=== PATIENT | female | born 1940 | race Caucasian/White ===

== ENCOUNTER 2016-08-31 12:18 | Inpatient (IN) | payer MEDICARE ==
[~2016-08-31] VITALS: Ht 165.1 cm; Wt 82.0 kg
[2016-08-31 12:23] VITALS: BP 164/102; PULSE 79; RESP 22; O2SAT 99
--- NOTE | 2016-08-31 12:24 | ED.REPORT ---
HPI-Chest Pain 40 and Over Date of Service Aug 31, 2016 ED Provider: Jesus Desouza DO The patient is a 76 year old female with history of hypertension and bleeding ulcers, who was brought to the emergency department by EMS for substernal chest pain that began a few days ago. Her pain has waxed and waned since onset. She describes the pain as a "pressure" and states it feels like indigestion. The pain radiates through to her back. Her symptoms improved this morning for a few hours after she was in a supine position but later returned. Medics administered aspirin, Plavix, heparin bolus, started a heparin drip, and nitroglycerin x1. Her pain has improved with these medications. She denies hematochezia, bloody/tarry stools or hematuria. She denies history of known coronary artery disease or blood clots. Nursing Notes Stated Complaint: CHEST PAIN Chief Complaint: Chest Pain Nursing Notes Reviewed: Yes Allergies: Coded Allergies: No Known Allergies (Unverified , 08/31/16) General Time Seen by MD: 12:20 Chief Complaint Chest pressure Hx Obtained From: Patient, EMS Arrived By: Ambulance Sudden in Onset?: Yes Onset Occurred: 4 days ago Symptom Duration: Waxes and wanes Location: : Substernal Quality: Painful, Pressure Radiation: : Does not radiate Severity: Current: Pain level 4 out of 10 Severity: Maximum: Severe Recent Healthcare: No recent doctor visit, No recent hospitalization Similar Sx Previous: No Past Medical History Past Medical History Hypertension Bleeding ulcers Past Surgical History Sinus surgery Family History Noncontributory Smoking History Former Smoker Social History Alcohol Use: "Social" Drug Use: Denies drug use Ambulatory Status Independent Review of Systems Review of Systems Note: +indigestion Cardiovascular: Reports: Chest pain Musculoskeletal: Reports: Back pain Complete sys rev & neg: except as marked. Physical Exam Initial Vital Signs Vital Signs (First) Date Time Temp Pulse Resp B/P Pulse Ox O2 Delivery O2 Flow Rate FiO2 08/31/16 12:23 36.4 79 22 164/102 99 08/31/16 12:44 Nasal Cannula 3 Initial VS: Reviewed Head / Eyes: Atraumatic, Normocephalic, PERRL ENT: Mucous membranes moist, Conjunctiva normal, No scleral icterus Neck: Supple, Non-tender, Full range of motion Lymphatic: No lymphadenopathy Extremities: Vascular intact, Neuro intact, No swelling, No tenderness Skin: Warm, Dry, No cyanosis Neurologic: Alert, Oriented, Nonfocal Psychiatric: Mood/affect normal, Behavior normal, Normal thought content General/Constitutional: Awake, Alert, Cooperative Distress / Hydration: Positive: Distress mild Respiratory / Chest: Atraumatic, Breath sounds NL, Breath sounds = bilat, No respiratory distress, No rales, No rhonchi, No wheezing, No stridor, No chest tenderness Cardiovascular: Heart rate NL, Regular rhythm, Heart sounds NL, No gallop, No murmurs, No rubs, Peripheral circulation NL, Pulses = bilaterally, No gross BP differential Abdomen: Atraumatic, Soft, Non-tender, McBurney's non-tender, No guarding, No rebound, BS normoactive, No distention, No hernia, No palpable mass Interpretation & Diagnostics Lab Results Interpretation Result Diagram: 08/31/16 1255 08/31/16 1255 Test 08/31/16 12:41 08/31/16 12:55 Hold Urine Received (Received) White Blood Count 8.7th/mm3 (3.8-10.1) Red Blood Count 4.22mil/mm3 (3.90-5.20) Hemoglobin 13.5g/dL (12.0-15.6) Hematocrit 40.1% (35.0-46.0) Mean Corpuscular Volume 95.0fL (81-100) Mean Corpuscular Hemoglobin 32.0pg (27.0-35.0) Mean Corpuscular Hemoglobin Concent 33.7% (32.0-37.0) Red Cell Distribution Width 13.4% (12.3-15.4) Platelet Count 290bil/L (150-400) Neutrophils (%) (Auto) 72.9% (40-74) Lymphocytes (%) (Auto) 17.4% (14-46) Monocytes (%) (Auto) 8.0% (4-12) Eosinophils (%) (Auto) 1.0% (0-5) Basophils (%) (Auto) 0.6% (0-3) Prothrombin Time 10.7sec (8.1-12.5) Prothromb Time International Ratio 1.00ratio Activated Partial Thromboplast Time 66.2sec (22.8-33.0) Sodium Level 138mEq/L (134-144) Potassium Level 3.8mEq/L (3.5-5.2) Chloride Level 101mEq/L (97-108) Carbon Dioxide Level 21mmol/L (18-29) Blood Urea Nitrogen 11mg/dL (8-27) Creatinine 0.54mg/dL (0.57-1.00) Estimat Glomerular Filtration Rate 157mL/min (>59) Glucose Level 109mg/dL (60-99) Calcium Level 9.5mg/dL (8.5-10.1) Magnesium Level 1.7mg/dL (1.6-2.6) Total Bilirubin 0.4mg/dL (0.0-1.2) Aspartate Amino Transf (AST/SGOT) 28U/L (0-50) Alanine Aminotransferase (ALT/SGPT) 10U/L (0-32) Alkaline Phosphatase 107U/L (25-165) Total Creatine Kinase 128U/L (21-215) Creatine Kinase MB 21.3ng/mL (0.0-5.3) Creatine Kinase MB % 16.6% (0.0-5.0) Troponin T 0.223ug/L (0.0-0.011) Total Protein 7.3g/dL (6.4-8.4) Albumin 4.0g/dL (3.4-5.0) Hold Blancas Top Tube Received (Received) ECG Interpretation ECG Interpretation: Reviewed multiple pre-hospital EKGS that showed a sinus rhythm with ST elevation in V2, V3, I, and aVL with ST depressions in II, III, and aVF. Interpreted by: ED physician ECG Interpretation: Sinus rhythm with Wellens type I waves in V2 and V3, T wave inversions in V4-aVL, ST depressions in II, III, and aVF. Time: 12:18 Interpreted by: ED physician X-Ray Chest Interpretation Chest Xray Interpretation: IMPRESSION: No acute cardiopulmonary disease process. Dictated by: Ronda Henry MD, PhD on 08/31/2016 at 12:52 Interpretation / Wet Read by: Interpret - Radiologist Re-Eval/Medical Decision Med Decision/Clinical Course Patient arrives from outside facility. Immediately upon arrival and evaluating prehospital EKGs, STEMI activation is made. Patient received morphine and nitroglycerin and metoprolol in the ER. Prior to arrival received aspirin, 300 mg Plavix, heparin bolus and drip. Patient will be taken emergently to the [facility]. Source of Hx: Old records, EMS Time of Eval: 12:26 Re-Evaluation/Progress Note: STEMI called. Time of Eval: 12:34 Re-Evaluation/Progress Note: Discussed plan for cardiology consult with the patient. She understands and agrees with the plan. Time of Eval: 12:50 Re-Evaluation/Progress Note: The patient is feeling better. Time of Eval: 12:55 Re-Evaluation/Progress Note: Dr. Griffith is at bedside. Time of Eval: 13:00 Re-Evaluation/Progress Note: The patient was transferred to the labor employment associate. Consultation #1: Referral / Consult Name: Haris Griffith MD Consulted With: Cardiology Call Returned at: 12:20 Health Manager: Will see patient Consultation #2: Referral / Consult Name: Haris Griffith MD Call Returned at: 12:53 Health Manager: Will see patient, Agrees with eval, Agrees with plan, Requested labor employment associate Counseled Regarding: Diagnosis, Lab results, Need for admission Discharge & Departure Primary Impression: STEMI (ST elevation myocardial infarction) Involved coronary artery: unspecified coronary artery Qualified Code: I21.3 - ST elevation (STEMI) myocardial infarction of unspecified site Disposition: ADMITTED TO HOSPITAL Discharge Condition All VS Reviewed: Yes Condition: Stable Referrals: Debbie Patel MD (Family) Crit Care Except Billable Proc Time Spent: 30-74 minutes Services Performed: Patient management by me, Time spent at bedside, Reviewing test results, Reviewing imaging, Discussing patient care, Documentation in record, Time with fam/surrogate Critical Care Notes: See MDM Scribe Attestation Portions of this note were transcribed by Amarilys Darden. I, Dr. Desouza personally performed the history, physical exam and medical decision-making; I reviewed and confirmed the accuracy of the information in the transcribed note. Signed by: Joann Juarez, 08/30/2016 at 0432. copies to: Debbie Patel MDJesus Diggs Aug 31, 2016 12:24 Amarilys Darden Aug 31, 2016 12:31
[2016-08-31] MEDS ORDERED: Ondansetron 2 mg/mL 2 mL Inj ONE (12:35)
[2016-08-31 12:44] VITALS: BP 160/97; PULSE 92; RESP 16; O2SAT 93
[2016-08-31] MEDS ORDERED: Heparin 1,000 Unit/mL 10 mL Inj ONE ×2 (12:46→14:57)
[2016-08-31] MEDS ORDERED: Nitroglycerin 50,000 mcg/250 mL D5W Premix IV ONE (12:46)
[2016-08-31] MEDS ORDERED: Heparin 1,000 Units/500 mL NS Premix IV ONE ×2 (12:46→14:53)
[2016-08-31] MEDS ORDERED: Heparin 5,000 Units/500 mL NS Premix IV ONE (12:46)
--- NOTE | 2016-08-31 12:54 | DRSVH ---
PROCEDURE: X-RAY CHEST ONE VIEW, PORTABLE ([id number]) INDICATIONS: chest pain TECHNIQUE: One view of the chest was acquired. COMPARISON: [facility], , CHEST 2 VIEW, 01/08/2012, 10:52. FINDINGS: Surgical changes and devices: None. Lungs and pleura: No pleural effusions or pneumothorax. Lungs are clear. Mediastinum: Mediastinal contours appear normal. Heart size is normal. Retrocardiac hiatal hernias again noted. Bones and chest wall: No suspicious bony lesions. Overlying soft tissues appear unremarkable. IMPRESSION: No acute cardiopulmonary disease process. Dictated by: Ronda Henry MD, PhD on 08/31/2016 at 12:52 Approved by: Ronda Henry MD, PhD on 08/31/2016 at 12:52
[2016-08-31 12:55] VITALS: BP 155/91; PULSE 77; RESP 18; O2SAT 93
[2016-08-31 13:03] LABS: BASOPHILS % (AUTO) 0.6 % (0-3); NEUTROPHILS % (AUTO) 72.9 % (40-74); Platelet Count 290 bil/L (150-400)
[2016-08-31] MEDS ORDERED: fentaNYL-PF 50 mCg/mL 2 mL Inj ONE (13:08)
[2016-08-31 13:43] LABS: Magnesium 1.7 mg/dL (1.6-2.6)
[2016-08-31 14:10] LABS: TROPONIN T 0.223 ug/L (0.0-0.011)
[2016-08-31] MEDS ORDERED: Atropine 1 mg/10 mL (Code) Syringe IVPUSH PRN (16:15)
[2016-08-31] MEDS ORDERED: Sodium Chloride LOK Flush 10 mL Syringe IVFLUSH PRN (16:15)
[2016-08-31] MEDS ORDERED: Ondansetron 2 mg/mL 2 mL Inj IVPUSH PRN (16:15)
[2016-08-31] MEDS ORDERED: 0.9% Sodium Chloride 250 ML BOLUS IV PRN (16:15)
--- NOTE | 2016-08-31 17:37 | PCM.HPMED ---
Subjective Date of Service Aug 31, 2016 Primary Provider: Admitting Physician: Haris Griffith MD Primary Care Physician: Other,Physician Attending Physician: Haris Griffith MD Chief Complaint: Chest pain HISTORY was OBTAINED FROM PATIENT / MEDITECH NOTES History of present illness 76-year-old female with 4 days of substernal chest pain intermittent pressure-like radiated to her back associated malaise progressively worse each day so called EMS today. EMS gave her aspirin Plavix heparin bolus/drip nitroglycerin and improved pain with this. No bloody stools. No prior MIs. In the ER morphine, nitroglycerin, 164/102, 3 L nasal cannula, troponin 0.223, ST elevation inferior leads, inverted T lateral leads. In the [facility], LAD was stented 3. Dr. Griffith. Review of Systems - none of the following - F/C/sick contact / wt change/ TONG / lightheaded / dizziness / sob / cough / cp / acid reflux / bleeding/bruising / leg swelling / change in voiding / yeast infections / rash ambulates ongoing sinus congestion diarrhea yesterday / nausea yesterday FAMILY HX no MIs SOCIAL HX social EtOH, former smoker MEDICATIONS serzone nexium verapamil zestril potassium, self dcd HCTZ due to frequent voiding Past Medical/Surgical HX PUD/hemorrhaging, but normal endoscopy 10/05/2004 Hypertension\ Sinus operation 2016 recurrent sinusitis depression Allergies Coded Allergies: No Known Allergies (Unverified , 08/31/16) PMH Social History Hx Alcohol Use: Yes (wine occasionally) Smoking Status: Former Smoker Exam Vital Signs Vital Sign - Last Date Time Temp Pulse Resp B/P Pulse Ox O2 Delivery O2 Flow Rate FiO2 08/31/16 12:55 77 18 155/91 93 Nasal Cannula 3 08/31/16 12:23 36.4 Lab and Diagnostics Labs Exam on admission 2L O2, drops to 88% if off O2 NAD A and O x 3 mood affect WNL NC/AT no icterus no injected eyes EOMI PERRL /no pharyngeal lesions/ no oral lesions / hearing intact Supple neck CTAB equal chest rise / no accessory muscle use / speaks in full sentences / no rrw RRR S1 S2 / no mrg / 2+ radial pulses Soft nt nd + BS no hepatosplenomegaly No edema no cyanosis no ecchymosis of lower extremities No rash / no jaundice LAMAR EKG SR 57, inverted T waves in precordial/lateral leads Trop0.223 at 1 PM INR 1 LFT normal Imaging PROCEDURE: X-RAY CHEST ONE VIEW, PORTABLE ([id number]) INDICATIONS: chest pain TECHNIQUE: One view of the chest was acquired. COMPARISON: [facility], CHEST 2 VIEW, 01/08/2012, 10:52. FINDINGS: Surgical changes and devices: None. Lungs and pleura: No pleural effusions or pneumothorax. Lungs are clear. Mediastinum: Mediastinal contours appear normal. Heart size is normal. Retrocardiac hiatal hernias again noted. Bones and chest wall: No suspicious bony lesions. Overlying soft tissues appear unremarkable. IMPRESSION: No acute cardiopulmonary disease process. Result Diagram: 08/31/16 1255 08/31/16 1255 Assessment & Plan Active issues and reason for admission Chest pain, LAD occlusion/3 stent placement, treated as ST elevation RI -- Pending lipid panel, A1c, echo -- Lipitor, nitroglycerin, aspirin, Plavix, oxygen, morphine --strict Urine output, unknown CHF involvement --anticipate dc home verapamil, start betablocker per chemical preparer, anticipate resuming home ACEI after contrast from cardiac cath passes. Sinusitis --trial amoxicillin, claritin, ocean spray Chronic issues known prior to admission, present on admission Hypertension depression PUD, but 2005 negative EGD -- Protonix, serzone Diet cardiac DVT prophylaxis scd, consider heparin/Lovenox if not ambulating by tomorrow Code full Disposition inpatient Assessment and plan were discussed with patient Ryan Tomas MD Aug 31, 2016 17:37
--- NOTE | 2016-08-31 18:08 | NUR ---
Admit Pt arrived from clinical laboratory technician at 1600 after having 3 stents placed to the LAD. Right groin site c/d/i and soft to the touch. Alert and oriented x3. Laying flat and gave verbal understanding of remaining that way until 1900. Heart healthy diet ordered. Gave statin once sent from pharmacy. The plavix that was ordered to give non administered r/t being given in clinical laboratory technician. 2L O2 NC at 96% No other c/o than mild soreness at right groin site. EKG completed. consulted with pt. MRSA swab sent. X2 peripheral fragile IV with NS at 100ml/hr. 400cc urine output into bedpan. Pedal pulses strong. Significant other at bedside. Updated daughter (POA) on the phone that expressed concerns that if pt were to be unable to make decisions for herself that daughter needs to be called and patients significant other is not to make decisions for her.
--- NOTE | 2016-08-31 18:46 | CS94 ---
[address] [address] DIAGNOSTIC CARDIAC CATHETERIZATION PATIENT: NATALIE GONZALEZ : 1939 MR#: [id number] ADMIT: 08/31/2016 JOB ID: [id number] PROCEDURE NOTE--CARDIAC CATHETERIZATION LABORATORY: DATE OF PROCEDURE: Wednesday, August 31, 2016. STEAMER OPERATOR: Haris Griffith MD PROCEDURES: 1. Coronary Angiogram--Emergent: 2. Left Heart Catheterization (LHC)--LVED; and Pullback. 3. Percutaneous Coronary Intervention (PCI): a. GUADALUPE of Mid LAD: Resolute 2.25 x 30 mm; and Resolute 2.25 x 12 mm overlapping proximally. b. GUADALUPE of Proximal LAD--Xience 2.75 x 18 mm. CLINICAL DETAILS: This 76-year-old woman presented to the Emergency Department by EMS because of severe indigestion-like chest pain that had been intermittent for several days. In the Emergency Department she had no chest pain. ECG in the ambulance showed anterior ST elevation, including confirmatory inferior reciprocal ST depression, but this had resolved in the emergency department; and then showing Wellen's-like anterior T-wave inverson. She was otherwise stable. She has no prior history of heart disease. PROCEDURAL DETAILS: In the ambulance she received aspirin 324 mg chewed. In the Emergency Department she received Heparin 4000 units IV bolus; and Heparin IV infusion. In the ambulance she received 300 mg Plavix p.o; and 300 additional mg Plavix p.o. in the ED. I evaluated her in the Emergency Department and discussed with her and her Significant Other--including the clinical findings, impressions, and management considerations with the recommendation to proceed emergently to coronary angiogram, and anticipated percutaneous coronary intervention for acute coronary syndrome with resolved ST-elevation. We discussed the procedure, including possible risks and complications in the emergent setting. We discussed briefly including bleeding, and multiple other possible complications including serious complications, and related to her severe underlying illness, or despite medical care. After questions and discussion she signed informed consent to proceed. She was brought to the Catheterization Laboratory, where she was prepped sterilely and draped. CORONARY ANGIOGRAM: Arterial access was obtained without difficulty in the right common femoral artery using fluoroscopic localization over a prosthetic femoral head with modified Seldinger technique to insert a 10-cm 6-Norwegian side-arm sheath. Catheters were advanced and exchanged over a long 0.035 J-tipped Guidewire. First the right coronary artery was was imaged using a 6-Norwegian JR-4 diagnostic catheter. The catheter entered the left ventricle incidentally and left heart catheterization was performed including LVED and pullback. Then the left coronary artery was imaged using a 6-Norwegian JL-4 Guide catheter. PERCUTANEOUS CORONARY INTERVENTION--MID AND PROXIMAL LAD: The diagnostic angiogram was reviewed; and the decision was made to proceed emergently with Intervention of the culprit LAD lesion-- which includes a long subtotal Mid LAD lesion and a proximal tubular lesion. The proximal lesion is at the site of a small diagonal which has only FARRUKH-1 flow initially. For the intervention the left main coronary artery was short and the guide was changed to 6-Norwegian Voda 3.0 Guide. Procedural anticoagulation was obtained with Heparin IV boluses to achieve therapeutic ACT. Aliquots of NTG IC were used as needed during the procedure. PREDILATATION: Initially a BMW Wire--0.014 inches x 190 cm--was placed across both lesions into the Distal LAD without difficulty. The proximal lesion was predilated with a Trek Balloon--2.5 x 15 mm--inflated across the proximal lesion to maximum six atmospheres. The lesion was improved. Then a Resolute GUADALUPE Stent--2.25 x 30 mm--was advanced but would not cross the proximal edge of the Mid LAD lesion. Multiple maneuvers were required to allow the stent to pass easily, including a nazario wire BHW. The distal lesion was predilated with a Trek Balloon--2.5 x 15 mm--inflated to maximum six atmospheres. Finally, the proximal part of the lesion was predilated further with a noncompliant Trek NC Balloon-- 2.25 x 15 mm--inflated to maximum 12 atmospheres. The lesion appeared improved. STENT: After predilatation the Resolute GUADALUPE 2.25 x 30 mm was placed without difficulty across the lesion; and deployed at 14 atmospheres. Then the residual proximal portion of the lesion was treated with 2nd stent overlapping the 1st stent proximally--Resolute GUADALUPE 2.25 x12 mm--deployed at 16 atmospheres. Finally the proximal lesion was treated with a Xience GUADALUPE--2.75 x18 mm--deployed at 14 atmospheres across the proximal LAD lesion. Postdilatation: the distal stents were post dilated with a noncompliant Trek NC Balloon--2.25 x 15 mm--inflated to maximum 20 atmospheres within the two overlapping Mid LAD stents. Completion angiogram showed an excellent final result with FARRUKH-3 flow; no residual lesion; and no evident angiographic complication.Regarding door to balloon time, note estimated door to balloon time was 78 minutes; and the artery was initially open with spontaneous reperfusion; and initially FARRUKH-3 flow. Procedure without difficulty. Patient tolerated procedure well. No complications. A side-arm sheath angiogram showed adequate access in the right common femoral artery for a closure device. Arterial hemostasis was obtained without difficulty using Perclose. The patient was transferred from the Catheterization Laboratory chest-pain free; in stable and improved condition to the CCU for ongoing care including by the admitting Hospitalist Service. I discussed the procedure, findings, and management considerations with the patient, her Significant Other, and with the Hospitalist Team. FINDINGS: 1. LMCA: The left main coronary artery is very short, with near dual ostia, but no obstructive lesions. 2. LAD: The left anterior descending coronary artery is a large transapical vessel; and it is the infarct-related artery. There is a proximal tubular 90% lesion at the site of a takeoff of a small first diagonal. The diagonal only has FARRUKH-1 flow; and remained unchanged. There is a second long diffuse 99% Mid LAD lesion which was the distal treatment site. There are no large diagonals. 3. LCX: The left circumflex coronary artery is a large vessel; its distribution includes a moderate to large first obtuse marginal and a moderate to large distal left posterolateral branch. There are no angiographic lesions. 4. RCA: Dominant. The right coronary artery is a large vessel with a moderate to large PDA; and a moderate right posterolateral branch. No angiographic lesions. There are faint septal collaterals to the LAD but they do not perfuse the LAD significantly. 5. LHC: LVED=15 mmHg. No systolic gradient on pullback across the aortic valve. CONCLUSIONS: 1. PCI: GUADALUPE (Drug-Eluting Stent) of Proximal LAD; and Mid LAD culprit lesions. 2. ACS (acute anterior myocardial infarction): Note spontaneous reperfusion on reaching the Emergency Department, with no chest pain; resolution of ST elevation; and initially FARRUKH-3 flow in the infarct-related LAD. 3. CAD (Coronary Artery Disease): Single-Vessel CAD involving the Proximal and Mid LAD. RECOMMENDATIONS: 1. ECASA: Indefinitely. 2. Plavix: Plan one year if well tolerated including ongoing cardiology follow-up. I discussed with the patient, and Significant Other not to stop Plavix for any reason without immediate Cardiology consultation. 3. Echocardiogram. 4. OMT: Guideline directed optimal medical therapy including aspirin, Plavix, beta-gilberto in a.m., TAYLOR inhibitor later, and statin now. 5. Careful postprocedure hydration and careful monitoring of renal function. MTDD
[2016-08-31] MEDS ORDERED: Sodium Chloride NAS 45 mL Spray NASAL ONE (18:55)
[2016-08-31] MEDS ORDERED: Sodium Chloride NAS 45 mL Spray NASAL PRN (18:55)
--- NOTE | 2016-08-31 19:19 | CONS ---
[address] [address] CONSULTATION REPORT PATIENT: NATALIE GONZALEZ : 1939 MR#: [id number] ADMIT: 08/31/2016 JOB ID: [id number] CARDIOLOGY CONSULTATION NOTE--INITIAL CRITICAL CARE EVALUATION(EMERGENCY DEPARTMENT): DATE OF CONSULTATION: Wednesday, August 31, 2016 at 1:50PM. CONSULTING PHYSICIAN: Cardiology-Haris Griffith MD PROBLEMS: 1. Acute Coronary Syndrome (ACS): a. Chest Pain--Intermittent (Severe indigestion for at least 48 hours). b. STEMI (ST-elevation myocardial infarction)--Acute anterior myocardial infarction on ECG, but ST elevation resolved on admission to emergency department. CORONARY ARTERY DISEASE RISK FACTORS: 1. No history of diabetes. 2. History of treated hypertension for some years. 3. Former smoker--stopped 40 years ago. 4. Family history of premature coronary disease-- Noncontributory. 5. Hyperlipidemia--No history of treated hyperlipidemia. CHIEF COMPLAINT: 1. Chest pain. 2. ECG with anterior ST elevation. HISTORY OF PRESENT ILLNESS: EMERGENCY DEPARTMENT COURSE: The emergency department called to activate the catheterization lab for a "STEMI" when this 76-year-old woman from [facility] presented by EMS. I came to meet her emergently in the emergency department. She tells me that she has had severe 8/10 in intensity retrosternal "indigestion" with some radiation to the back that has been bothering her intermittently for two days "or maybe more." The longest episodes have lasted at least an hour. Today the pain was worse and she called EMS. In the ambulance she received aspirin 325 mg chewed. Interestingly, on admission to the emergency department she was pain free; and ECG had largely normalized without the anterior ST-elevation, or reciprocal inferior ST-depression that were noted on the pre-hospital ECG. She was otherwise clinically stable, and in fact hypertensive with blood pressure 160/93 initially. CARDIAC HISTORY: She tells me she has no prior known heart disease. She describes herself as being not much active; but she accomplishes her activities of daily living without limitation or effort-related cardiac symptoms, including recently. She has a flight of stairs in her house that she walks without difficulty. She goes shopping, although she does not drive anymore; and she can carry laundry and groceries without shortness of breath or chest discomfort. She has no symptoms of underlying heart failure such as nocturnal dyspnea or edema. She has no history of arrhythmia or current symptoms of arrhythmia such as tachy palpitations, presyncope, or syncope. Regarding other possible underlying vascular disease, there is no history of CVA or current symptoms of TIA. No claudication. Regarding possible dual antiplatelet therapy she indicates she is reliable to take mandatory medicines, she has no anticipated upcoming surgery, and she has no current bleeding symptoms. ALLERGIES: No known drug allergies noted. I elicit no history of allergy to contrast media or to fish, seafood, or iodine. MEDICATIONS: She is not entirely sure of all her medicines but they include: 1. Verapamil. 2. Lisinopril. Not an aspirin; and not on a statin. PAST MEDICAL HISTORY: 1. GI bleed: Remote history many decades ago requiring 4 units of transfusion. Nothing recent. 2. Right hip replacement several years ago. 3. Sinus ENT surgery about six months ago. REVIEW OF SYSTEMS: I questioned her in the emergent setting regarding a 13-point review of systems, which is unremarkable noncontributory, or negative except as noted includin. Some history of thyroid disease but she is not able to give details. 2. No history of lung disease, asthma, or wheezing. 3. No history of other GI disease such as hepatitis, jaundice, or ulcers. PERSONAL AND SOCIAL HISTORY: Cigarettes: She stopped smoking 40 years ago. She smoked a pack a day for maybe 20 years. She has no history of COPD. Alcohol: She reports she does not use much alcohol. Family: Her . She has a significant other who is present and has taken care of her "for over 10 years." Her daughter is a critical care and cardiac nurse in [place], [place]. Work: She and her lived in [place] for many years working for [employer]; now retired. FAMILY HISTORY: Family history noncontributory regarding premature coronary disease. PHYSICAL EXAMINATION: General appearance: Well-developed, pleasant, elderly woman who is alert and appears comfortable in the emergency department. Vital signs: Initial blood pressure 160/109 and then 130/80. Heart rate 66, regular, in sinus rhythm on telemetry without arrhythmia. Respiratory rate 20 and nonlabored. SpO2 96% on nasal cannula. Weight is 77 kg. Neurologic and Mental status: No overt focal neurologic defect noted. She is alert, oriented, appropriate, and conversant. HEENT: PERRL. Conjunctivae pink. Sclerae not icteric. Mouth: Mucous membranes intact, with Mallampati four. Neck: Carotid upstroke faint, but intact, and no bruit audible bilaterally. Jugular venous pressure unremarkable examined supine. No palpable thyromegaly. No palpable cervical lymphadenopathy. Lungs: Clear to auscultation bilaterally. CARDIAC: No chest wall tenderness. Cardiac examination otherwise unremarkable, with regular rhythm, S4; and not any loud murmur. Abdomen: Somewhat obese, but otherwise unremarkable, without tenderness, mass, hepatosplenomegaly, or bruit of abdominal aortic aneurysm. Extremities: No edema. The pedal pulses are faint bilaterally. The dorsalis pedis pulse is intact on the right. DIAGNOSTIC STUDIES: Electrocardiogram: Initial pre-hospital ECG shows sinus rhythm with clear anterior ST elevation including ST-elevation in lateral leads L1 and aVL, and also confirmatory reciprocal inferior ST depression. The ECG on presentation to the emergency department shows deep Wellens type T-wave inversion anteriorly; but ST elevation and reciprocal ST depression have cleared consistent with the resolution of chest pain on presentation. 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 Chest x-ray: The chest x-ray shows cardiomegaly and borderline pulmonary venous hypertension suggestive of possible heart failure. Note probable hiatal hernia. LABORATORY TESTS: Initial laboratory results became available during the catheterization lab procedure including: CBC shows WBC 8700, hemoglobin 13.5, hematocrit 40.1, and platelet count 290,000. Chemistries include potassium 3.8, creatinine 0.54, BUN 11, with magnesium 1.7. LFT unremarkable. Initial cardiac markers include total CK not yet elevated at 128 with CK-MB elevated 21.3 and elevated troponin 0.223. ASSESSMENT: I discussed my findings, impressions, and management considerations with the patient and her Significant Other in the Emergency Department; and with the Emergency Department staff; Cardiology; and the admitting Hospitalist Service includin. Acute coronary syndrome (ACS): Acute anterior myocardial infarction with spontaneous pre-hospital reperfusion. She presents with acute anterior myocardial infarction; but the scenario also includes several atypical features in that she has had intermittent pain for several days. The ST-elevation captured on the pre-hospital ECG resolved along with her chest discomfort, which is consistent with the finding of an open culprit artery at that time of catheterization. She is otherwise clinically stable, except note hypertension. We discussed the recommendation to proceed emergently to catheterization and anticipated primary PCI for likely coronary disease and an LAD culprit lesion. RECOMMENDATIONS: 1. Cardiac Catheterization--Emergent. 2. Echocardiogram. 3. OMT--Guideline directed optimal medical therapy including aspirin; Plavix; heparin; statin; metoprolol later; and TAYLOR inhibitor later. 4. Evaluation and guideline-directed management of coronary risk factors. GERMAN
[2016-08-31] MEDS: Fluticasone 0.05% 15 Spray/2 Gm 16 Gm Nasal Spray NASAL SCH (19:33)
[2016-08-31] MEDS ORDERED: MULT1CAP33 PO (19:45)
[2016-08-31] MEDS ORDERED: NEFA200T PO (19:45)
[2016-08-31] MEDS ORDERED: CALC-140 PO (19:45)
[2016-08-31] MEDS ORDERED: LISI-567 PO (19:45)
[2016-08-31] MEDS ORDERED: LEVO75TA4 PO (19:45)
[2016-08-31] MEDS ORDERED: VERA240T97 PO (19:45)
[2016-08-31] MEDS ORDERED: HYDR12.55 PO (19:45)
[2016-08-31] MEDS ORDERED: POTA20TA16 PO (19:45)
[2016-08-31] MEDS ORDERED: OMEP20CA11 PO (19:47)
[2016-08-31] MEDS ORDERED: FEXO180T85 PO (19:47)
[2016-08-31] MEDS: Pantoprazole 20 mg ER24 Tablet PO SCH (19:55)
[2016-08-31 20:00] VITALS: BP 120/59; PULSE 70; RESP 18; O2SAT 96
[2016-08-31] MEDS ORDERED: 0.9% Sodium Chloride 500 ML ONE (20:06)
[2016-08-31] MEDS ORDERED: 0.9% Sodium Chloride 0 ML ONE (22:35)
[2016-08-31 23:44] VITALS: BP 120/62; PULSE 67; RESP 18; O2SAT 95
[2016-09-01] VITALS (9 sets, daily range): BP systolic 125–136; BP diastolic 54–81; PULSE 61–86; RESP 12–18; O2SAT 90–95
[2016-09-01 02:57] LABS: BASOPHILS % (AUTO) 0.4 % (0-3); EOSINOPHILS % (AUTO) 1.9 % (0-5); MONOCYTES % (AUTO) 10.2 % (4-12); Mean Corpuscular Volume 97.9 fL (81-100); NEUTROPHILS % (AUTO) 66.9 % (40-74); Platelet Count 213 bil/L (150-400)
[2016-09-01 04:59] LABS: APPEARANCE,URINE HAZY (CLEAR,HAZY); COLOR,URINE YELLOW (YELLOW); OCCULT BLOOD,URINE NEGATIVE (NEGATIVE); PH,URINE 5.5 (5.0-8.0); UROBILINOGEN,URINE NORMAL (NORMAL)
--- NOTE | 2016-09-01 06:04 | NUR ---
Cardiac/Resp/Cath BP stable this shift, 120/60's, HR 70's-80's SR with ST depression, no reperfusion V-Tach noted this shift, denied chest pain since cath, O2 2L NC and sats 96%, desats to 88% while sleeping without O2, experienced right groin pain after getting up to [facility] at 2044, very small hematoma noted about 15 min after getting back in bed, monitored and hematoma continued to increase, manual pressure held, hematoma continued to increased in size, cardiology notified and ordered to place FemStop, FemStop was unable to hold pressure in the exact location over artery to stop the bleeding, manual pressure held for 25 minutes, hematoma marked and no increase in size noted since 2329, medicated for pain with 4mg Morphine, pain level 8/10 and decreased to 2/10 within the hour. Resting this AM and no distress noted, will continue to monitor. Addendum: 09/01/16 at 0622 by HITESH TRAVIS RN Amended: Links added.
--- NOTE | 2016-09-01 08:22 | NUR ---
Transfer to [facility] Orders to transfer patient out of ICU to PCC room 2030 received. Right groin hematoma stable and decreasing on assessment this morning. Right pedal pulses palpable. Patient c/o right groin discomfort and TONG so PO Tylenol PO given. Pain has decreased "slightly". Report given to José ROBBINS and patient transferred via w/c. Vitals stable.
[2016-09-01] MEDS ORDERED: Potassium Chloride Oral 20 mEq SR Tab(K 3 - 3.7 & Creat < 2) PO ONE (08:30)
[2016-09-01] MEDS: Pantoprazole 20 mg ER24 Tablet PO SCH ×2 (09:11→20:53)
[2016-09-01] MEDS: Fluticasone 0.05% 15 Spray/2 Gm 16 Gm Nasal Spray NASAL SCH ×2 (09:13→20:51)
--- NOTE | 2016-09-01 09:15 | NUR ---
Transfer Pt. transferred from ICU room 2010 room 2030 [facility]. Pt. has a right groin hematoma that is stable per report and has an outlined drawn around it. Right groin area is painful and tender upon palpation, Pt. states when ambulating pain level is at 7-8 out of 10. At rest Pt. states pain level is 3-4 out of 10. Pt. VS stable and on 1L NC SpO2 96%. Pt. is in bed sleeping at this time. Addendum: 09/01/16 at 1425 by HENRI LOERA RN Transfer report given by Ana Lilia ROBBINS.
--- NOTE | 2016-09-01 13:52 | PCM.PNMED ---
Subjective Date of Service Sep 01, 2016 Subjective No chest pain or dyspnea. No N,V,D. No abdomen pain. Right groin is a little sore. No cough. Exam Vital Signs Vital Sign - Last Date Time Temp Pulse Resp B/P Pulse Ox O2 Delivery O2 Flow Rate FiO2 09/01/16 12:30 36.7 70 18 129/69 94 Nasal Cannula 0.50 Intake and Output 08/31/16 08/31/16 09/01/16 Cumulative From/Thru 15:00 23:00 07:00 08/31/16 12:23 - 09/01/16 04:08 Intake Total 333 ml 640 ml 973 ml Output Total 400 ml 300 ml 700 ml Balance -67 ml 340 ml 273 ml Intake IV Total 333 ml 640 ml 973 ml Output Urine Total 400 ml 300 ml 700 ml # Bowel Movements 0 0 Exam NAD, oriented by three. Fluent speech Anicteric sclera Lungs clear CV RRR, no murmur Abdomen soft, NT No edema Small right groin hematoma. IVs and Medications Medications Reviewed: Medications were reviewed in detail Lab and Diagnostics Result Diagram: 09/01/1624909/01/16249 Assessment & Plan 1. STEMI. POA. Chest pain, LAD occlusion/3 stent placement, treated as ST elevation [place] -Continue current medical management. 2. Sinusitis --trial amoxicillin, claritin, ocean spray Chronic issues known prior to admission, present on admission 4. Hypertension. Follow clinically 5. depression 6. PUD, but 2005 negative EGD -- Protonix, serzone Pain Evaluation: Adequate Pain Control VTE Mechanical Devices: Intermittant Pneumatic CD Resuscitation Status: CPR: Attempt Resuscitation Time spent 30 minutes Phillip Fish MD Sep 01, 2016 13:52
--- NOTE | 2016-09-01 16:17 | PROG NOTE ---
[address] [address] PROGRESS NOTE PATIENT: NATALIE GONZALEZ : 1940 MR#: [id number] ADMIT: 08/31/2016 JOB ID: [id number] DATE: 09/01/2016. SUBJECTIVE: Overnight, patient had no chest pain recurrence. She had developed a hematoma around the right inguinal ligament. It was just alleviated by nursing staff, who recognized the problem and performed manual pressure. FemoStop was placed but could not hold the pressure in exact location. Manual pressure was held for 25 minutes. The patient received morphine and responded favorably to that. There was no bruit auscultated over the right common femoral artery vascular access site. Patient says she feels exhausted. She feels like she has been "run over by a cement truck." CURRENT MEDICATIONS IN THE HOSPITAL: 1. Aspirin 81 mg daily. 2. Plavix 75 mg daily. 3. Lipitor 40 mg daily. 4. Metoprolol tartrate 12.5 mg twice a day. 5. Serzone 100 mg twice a day. 6. Morphine as needed. 7. Amoxicillin 500 mg 3 times a day. PHYSICAL EXAMINATION: Very pleasant woman accompanied by her grandson, granddaughter and daughter. Resting in bed in no apparent distress. Appears somewhat sad. Eyes: No scleral icterus. Heart: Normal S1, S2. No murmurs. Lungs are clear. Abdomen is soft, positive bowel sounds. No hepatosplenomegaly. Extremities show no edema. Right common femoral artery vascular access shows mild ecchymosis and tenderness to palpation but no bruit. LABORATORIES: Were reviewed. She is anemic, hematocrit 32%. White count, platelet count normal. Differential is normal. Troponin T was most recently 0.618 in the setting of normal kidney function. A1c is pending. Total cholesterol 251, triglycerides 188, HDL 58, LDL 155. TSH was not ordered. Free T4, T4 and T3 uptake are pending. ASSESSMENT AND PLAN: In summary, this is a delightful, 76-year-old woman who comes in with anterior ST-elevation myocardial infarction she was treated with drug-eluting stent deployed to the proximal left anterior descending, mid left anterior descending. She was diagnosed with single-vessel coronary artery disease involving proximal, mid left anterior descending. She had 90% proximal tubular lesion at the takeoff of the small diagonal with [id number] flow initially and excellent angiographic result. The patient is doing fine. We discussed nutritional guidelines, avoiding deep fried foods and eating fatty fish. We discussed the rationale for dual anti-platelet therapy, and I counseled her to please continue Plavix for at least the next six months, so the very earliest she can anticipate discontinuing this medication would be February 28, 2017. She is tolerating metoprolol tartrate 12.5 mg b.i.d. At home, she takes lisinopril 20 mg daily. I think that is a little bit too much for her, so tomorrow, will restart her on low-dose lisinopril 5 mg daily and see how she does with that. She had an echocardiogram already and that is ordered and I have not had a chance to review it yet. In terms of lipid management, I recommend repeating her fasting lipids in late September 2016 and titrate Lipitor up as needed. Thank you very much for the opportunity to evaluate this patient.
--- NOTE | 2016-09-01 16:37 | NUR ---
Evaluation completed. Please go to "Notes" then click on "Assessments and Notes" (bottom left corner of screen). Then select appropriate discipline tab on top of screen.
--- NOTE | 2016-09-01 17:52 | DRSVH ---
[facility] [address] [place] [address] Echocardiogram Report Name: NATALIE GONZALEZ RStudy Date: 09/01/2016 Height: 65 in Hospital Exam Location: [facility] Weight: 18 0 lb Gender: Female BSA: 1.9 m2 : 1940 Age: 76 yrs BP: 129/69 mmHg Reason For Study: S/P STEMI Ordering Physician: DR. hCris HAINES Performed By: Wilma Baer Referring Physician: Dr. Debbie Patel Interpretation Summary Normal sinus rhythm. Normal LV size and wall thickness. There is basal anterior, mid-anterior and distal anterior akinesis. there is distal septal akinesis; there is distal lateral and mid-anterolateral and basal anterolateral hypokinesis. TOtherwise, normal wall motion. EF is 40-45%. Stage II diastolic dysfunction. Mitral valve leaflets are normal; mild regurgitation. Aortic valve leaflets are normal; no regurgitation. There is moderate central TR; estimated PA systolic pressure is 63 mm Hg assuming RA pressure of 10 mm Hg. Compared to prior study performed 11/25/2014, focal wall motion abnormalities are new. PA systolic pressure samuel from 37 mm Hg to 63 mm Hg (likely due to elevated LV filling pressure). Diastolic dysfunction progressed from stage I to stage II. Procedure: A two-dimensional transthoracic echocardiogram with color flow and Doppler was performed. The apical views were difficult to obtain and are suboptimal in quality. The subcostal views were not obtained due to no visualization. A contrast injection of Definity was performed to improve assessment of LV function. Contrast was injected into an intravenous site in the right arm. A total of 5 cc of contrast was given. Comparison is made with the echocardiogram of 11-25-2014. The patient was in normal sinus rhythm during the exam. Left Ventricle: The left ventricle is normal in size. Left ventricular wall thickness is mildly increased. Spectral Doppler of the mitral valve shows a normal E/A wave ratio. Right Ventricle: The right ventricle is normal in size and function. Atria: The left atrium is severely dilated. The right atrium is mildly dilated. There is no Doppler evidence for an atrial septal defect. Mitral Valve: The mitral valve leaflets appear mildly thickened, but open well. There is moderate mitral regurgitation. Aortic Valve: The aortic valve is trileaflet. The aortic valve opens well. There is trace aortic regurgitation. Tricuspid Valve: The tricuspid valve leaflets are thin and pliable. There is moderate to severe tricuspid regurgitation. Right ventricular systolic pressure is estimated to be 53 mmHg plus the clinically estimated CVP which cannot be estimated on this exam. Pulmonic Valve: The pulmonic valve is not well seen, but is grossly normal. There is no pulmonic valvular regurgitation. Great Vessels: The aortic root is normal size. The dimensions of the ascending aorta are normal. The pulmonary artery is normal size. The inferior vena cava was not visualized. Pericardium/ Pleura There is no pericardial effusion. There is no pleural effusion. MMode/2D Measurements & Calculations LVIDd: 4.8 cm LA dimension: 4.7 cm RA long axis LVOT diam: 1.9 cm LVIDs: 3.2 cm AoV Opening FS: 33.6 % LA A2 area: 28.8 cm RA area IVSd: 1.2 cm LA A4 area: 28.1 cm Ao root diam LVPWd: 1.1 cm LA length (vol) : 22.6 cm RA vol asc Aorta Diam LA vol: 115.1 ml : 76.3 ml LA vol index RA Ao Arch Diam (Prox : 40.3 mm/ Trans): 2.8 cm : 60.8 ml/m2 RVDd major : 5.9 cm LV oleary. diameter/BSA LV sys. diameter/BSA RVD2 (mid) (cm/m^2): 2.5 (cm/m^2): 1.7 : 2.7 cm Doppler Measurements & Calculations Ao V2 max MV E max be MV E/A: 1.4 TR max be : 119.3 cm/sec : 97.6 cm/sec Med Peak E' Be : 365.3 cm/sec Ao max PG MV A max be TR max P.4 mmHg : 5.7 mmHg : 67.4 cm/sec E/E' med: 18.2 PA V2 max Ao mean PG MV P1/2t Lat Peak E' Be : 98.4 cm/sec : 60.7 msec PA mean P.9 mmHg LVOT Max Be MR ERO: 0.45 cm2 E/E' lat: 21.1 PA Accel Time : 79.8 cm/sec E/e' average: 19.6 : 0.09 sec FIDEL(I,D): 1.9 cm Pulm A Revs Dur sev ratio MV A dur: 0.13 sec MV dec time MV P1/2t max be Ao V2 mean LV V1 max PG : 0.21 sec : 88.6 cm/sec MVA(P1/2t) Ao V2 VTI: 24.6 cm LV V1 VTI: 16.4 cm : 3.6 cm2 FIDEL(V,D): 1.9 cm2 MR flow rate PA V2 mean FIDEL indexed to BSA Pulm A Revs Dur - MV : 223.9 cm3/sec : 66.2 cm/sec (cm^2/m^2): 1.0 A Dur: 0.01 msec MR PISA radius Reading Physician:05:51 PM
--- NOTE | 2016-09-01 18:43 | NUR ---
Oxygen/Right Groin Pt. was on 1L NC c/o her throat hurting so I tried to wean her off and Pt. dsated to mid 80's when she fell asleep. I put her back on NC but on 0.5L and her SpO2 93%-94% awake and sleeping. Pt. c/o of right groin pain upon ambulation, palpation of site. Area is outlined and bruises are within marked area. Morphine PRN was given (1430) prior to PT working with her at 1500 per Pt. statement of pain increasing to 7 or 8 out o f ten when ambulating. I
[2016-09-01] MEDS: Alum-Mag Hydrox-Simeth 30 mL Suspension PO PRN (19:09)
--- NOTE | 2016-09-01 19:45 | NUR ---
Dyspepsia/Chest discomfort During shift change patient mentioned to nurses that she was having some "indigestion," which she described as epigastric/substernal burning. Denied nausea or shortness of breath. PRN maalox given and STAT EKG obtained. No change noted from previous EKG. Patient reassessed after 15 minutes and reported that burning sensation had disappeared following the maalox. Continue to monitor.
[2016-09-02] VITALS (9 sets, daily range): BP systolic 120–142; BP diastolic 68–77; PULSE 66–88; RESP 16–24; O2SAT 92–97
[2016-09-02] MEDS: Alum-Mag Hydrox-Simeth 30 mL Suspension PO PRN (04:42)
[2016-09-02] MEDS: Fluticasone 0.05% 15 Spray/2 Gm 16 Gm Nasal Spray NASAL SCH ×2 (08:55→21:42)
[2016-09-02] MEDS: Pantoprazole 20 mg ER24 Tablet PO SCH ×2 (08:55→21:43)
[2016-09-02 11:07] LABS: Free Thyroxine Index 1.6 (1.2-4.9); Thyroxine (T4) 5.3 ug/dL (4.5-12.0)
--- NOTE | 2016-09-02 13:08 | PCM.PNMED ---
Subjective Date of Service Sep 02, 2016 Subjective She feels a little bit of heartburn today. No dyspnea. She has been belching. She also feels generally weak. No orthopnea. No leg swelling. No abdominal pain. No palpitations. Exam Vital Signs Vital Sign - Last Date Time Temp Pulse Resp B/P Pulse Ox O2 Delivery O2 Flow Rate FiO2 09/02/16 12:29 36.6 82 18 126/69 97 Room Air 09/02/16 00:09 2.00 Intake and Output 09/01/16 09/01/16 09/02/16 Cumulative From/Thru 15:00 23:00 07:00 08/31/16 12:23 - 09/02/16 05:47 Intake Total 20 ml 20 ml 1013 ml Output Total 700 ml Balance 20 ml 20 ml 313 ml Intake IV Total 20 ml 20 ml 1013 ml Output Urine Total 700 ml # Bowel Movements 0 Exam Alert oriented 3, fluent speech Neck supple normal JVP. Lungs are clear with normal effort. Heart is regular without murmur gallop or rub. Abdomen is soft nontender. Sclerae are free of edema and good pedal and radial pulses. Skin is free of rash or lesions. Right groin somewhat tender with small hematoma noted. IVs and Medications Medications Reviewed: Medications were reviewed in detail Lab and Diagnostics Result Diagram: 09/01/16 0250 09/02/16 0405 Assessment & Plan 1. STEMI. POA. Chest pain, LAD occlusion/3 stent placement, treated as ST elevation AR -Continue current medical management. We will likely increase her metoprolol from 12.5 twice a day to 25 twice a day. Will discuss with cardiology. Continue dual antiplatelets, atorvastatin at 40 and lisinopril at 5. 2. Probable acute systolic heart failure secondary to AR. POA. The patient currently compensated. Will again titrate her cardiac medications as noted above. Her LV EF is about 45%. 3. Possible Sinusitis --trial amoxicillin, claritin, ocean spray Chronic issues known prior to admission, present on admission 4. Hypertension. Follow clinically 5. depression 6. PUD, but 2005 negative EGD -- Protonix, serzone Probable discharge on September 03 Pain Evaluation: Adequate Pain Control VTE Mechanical Devices: Intermittant Pneumatic CD Resuscitation Status: CPR: Attempt Resuscitation Time spent 30 minute Phillip Fish MD Sep 02, 2016 13:08
--- NOTE | 2016-09-02 13:21 | NUR ---
Home Meds social security assessor noted patient had a bottle of allergy medication on bedside table. medication brought in by male visitor. family at bedside, encouraged patient not to take medication. pt took one tablet of medication when family wasn't looking for sneezing. MD informed of situation. Medication sent home with family. encouraged patient to report symptoms to nurse for further treatment. will continue to monitor.
[2016-09-02] MEDS: MeTOProlol XL 25 mg ER24 Tablet PO SCH ×2 (16:27→21:43)
--- NOTE | 2016-09-02 16:37 | DRSVH ---
PROCEDURE: US DUPLEX DOPPLER UNILATERAL LEG ARTERIES, RIGHT INDICATIONS: Possible hematoma TECHNIQUE: Color and pulse Doppler interrogation was performed of the right lower extremity arterial system, wit h image documentation. COMPARISON: None. FINDINGS: Limited sonography of the right groin demonstrates no abnormalities. No fluid collection or masses a re seen. Normal appearance of the right common femoral artery and vein as is demonstrated with spect ral and color-flow Doppler. Soft tissue swelling noted. IMPRESSION: No right groin hematoma or pseudoaneurysm. Dictated by: Stuart PATEL Interpreted: Naeem Farooq MD on 09/02/2016 at 16:36 Transcribed by: ELIAS on 09/02/2016 at 16:37 Approved by: Naeem Farooq M.D. on 09/02/2016 at 17:38
--- NOTE | 2016-09-02 16:44 | PCM.PNCARD ---
Subjective Date of service Sep 02, 2016 Chief Complaint STEMI s/p stent placement to LAD History of Present Illness Ms. Christine is a very pleasant 76 year old female with a past medical history of reported hypertension, syncope and edema. She presented to the ED via EMS for CP and was diagnosed with with an anterior STEMI due to single vessel CAD. Treated with drug eluting stent to the LAD and continued medication management. Subjective: Overnight Pt had no recurrence of chest pain. She does endorse a hematoma surrounding her right groin insertion site. PROBLEM LITS: # CAD s/p anterior HI 08/31/16 with emergent GUADALUPE X2 to LAD # HFrEF from ischemic cardiomyopathy: EF 40-45% on Echo 09/01/2016 # HLD # Frailty REVIEW OF SYSTEMS Constitutional: Denies Chills, Fever, Sweats, Weakness Eyes: Denies Blurred Vision, Vision Changes Cardiovascular: Denies Chest Pain, Edema, Irregular Heart Rate, Palpitations, Rapid Heart Rate. Endorses shortness of breath while lying flat Respiratory: Denies Cough, Cough with bloody sputum, Sputum, Wake up Gasping for Breath, Wheezing, endorses shortness of breath on exertion Gastrointestinal: Denies Abdominal Pain, Black tarry stools, Bright red blood in stool, Change in Appetite, Constipation, Diarrhea, Heartburn, Nausea, Vomiting Genitourinary: Denies No burning or pain with urination Musculoskeletal: Denies Ankle Pain, Back Pain, Knee Pain, Neck Pain, Shoulder Pain Pelvis: Susan is right inguinal pain and discomfort on palpation. Skin: Reports: Denies Itching, Lesions, Rash Neurological: Denies Change in LOC, Change in Speech, Confusion, Difficulty Walking, Dizziness, Double Vision, Localized Weakness, Numbness, Tremors, Vertigo Hematologic: Denies Abnormal Bleeding. Endorses bruising to right inguinal area Exam Vital Signs Vital Sign - Last Date Time Temp Pulse Resp B/P Pulse Ox O2 Delivery O2 Flow Rate FiO2 09/02/16 12:56 88 Room Air 09/02/16 12:29 36.6 18 126/69 97 09/02/16 00:09 2.00 Intake and Output 09/01/16 09/01/16 09/02/16 Cumulative From/Thru 14:59 22:59 06:59 08/31/16 12:23 - 09/02/16 05:47 Intake Total 20 ml 20 ml 1013 ml Output Total 700 ml Balance 20 ml 20 ml 313 ml Intake IV Total 20 ml 20 ml 1013 ml Output Urine Total 700 ml # Bowel Movements 0 Additional Information: Patient awake and alert and mentating appropriately resting in bed in no apparent distress accompanied by her grandson granddaughter and daughter. General: No acute distress, well-developed, well-nourished, appropriately interactive HEENT: Normocephalic, atraumatic. External ears without defect. Pupils equal, round, and reactive to light and accommodation. Anicteric sclerae, moist conjunctivae. Neck: Supple with full range of motion. No jugular venous distension. Cardiovascular: Regular rate and rhythm with no murmurs, rubs, or gallops appreciated Pulmonary: Clear to auscultation bilaterally with no crackles, wheezes, or rhonchi. Normal respiratory effort with no use of accessory muscles. Abdomen: Soft, nontender, nondistended. No hepatosplenomegaly or masses appreciated. Extremities: No clubbing, cyanosis, edema, or lymphadenopathy appreciated. Right inguinal area shows ecchymosis and swelling. Area tender to palpation Neurological: Cranial nerves grossly intact. Psychiatric: Normal mood and affect. Alert and oriented to person, place, and time. Lab and Diagnostics Result Diagram: 09/01/16 0250 09/02/16 0405 X-Rays, CTs and MRIs . X-RAY CHEST ONE VIEW, PORTABLE IMPRESSION: No acute cardiopulmonary disease process. Dictated by: Ronda Henry MD, PhD on 08/31/2016 at 12:52 Additional Diagnostics: 09/01/16 Echocardiogram Report Interpretation Summary: Normal sinus rhythm. Normal LV size and wall thickness. There is basal anterior , mid-anterior and distal anterior akinesis. there is distal septal akinesis; there is distal lateral and mid-anterolateral and basal anterolateral hypokinesis. Otherwise, normal wall motion. EF is 40-45%. Stage II diastolic dysfunction. Mitral valve leaflets are normal; mild regurgitation. Aortic valve leaflets are normal; no regurgitation. There is moderate central TR; estimated PA systolic pressure is 63 mm Hg assuming RA pressure of 10 mm Hg. Compared to prior study performed 11/25/2014, focal wall motion abnormalities are new. PA systolic pressure samuel from 37 mm Hg to 63 mm Hg (likely due to elevated LV filling pressure). Diastolic dysfunction progressed from stage I to stage II. Assessment & Plan Assessment 76 female s/p STEMI with stent placement, hospital day 3. Pt ambulating independently. Physical therapy states that Pt able to walk 140 feet. No recurrence of CP, though dose endorse right inguinal pain. HR said to have elevated to 89 during PT eval. Pt recovering well. #. Anterior STEMI, present on admission. EF 40-45%. No symptoms at present. - s/p PCI with stent placement. - Continue ASA 81mg daily - Continue Plavix 75mg daily - Continue atorvastatin 40mg qhs # CHF, from ischemic cardiomyopathy with EF 40-45%. Euvolemic on exam. Likely NYHA class II or III. Plan: - Continue metoprolol XL 25mg bid - Continue lisinopril 5mg qhs - Heart healthy diet #. Hyperlipidemia, present on admission. Statin as above #. Anemia, not present on admission. Ongoing. Suspect this is due groin hematoma and acute illness. No signs of retroperitoneal bleeding. Plan: - US ordered and pending - Continue to monitor Problems: Pain Evaluation: Adequate Pain Control VTE Prophylaxis: SCDs VTE Mechanical Devices: Intermittant Pneumatic CD Resuscitation Status: CPR: Attempt Resuscitation Attending Statement I saw, examined, and evaluated the patient with Dr. Chris Daniels on 09/02/2016 and agree with the note as above along with my edits. CHRIS DANIELS DO Sep 02, 2016 16:44 Maury Gomez MD Sep 02, 2016 17:22 CHRIS DANIELS DO Sep 02, 2016 16:44
[2016-09-03 00:03] VITALS: BP 137/76; RESP 18; O2SAT 94
[2016-09-03] MEDS: Alum-Mag Hydrox-Simeth 30 mL Suspension PO PRN (00:47)
--- NOTE | 2016-09-03 03:43 | NUR ---
Activity: Pt. ambulates in room with FWW and standby assist. Tolerates activity well. Pt. sat in chair during evening, which pt. states "felt good to get up". Pt. encouraged to perform activities as tolerated, and encouraged to be out of bed to chair during waking hours. Pt. acknowledges understanding.
[2016-09-03 04:31] VITALS: BP 136/73; PULSE 58; RESP 16; O2SAT 95
[2016-09-03 05:42] LABS: BASOPHILS % (AUTO) 0.6 % (0-3); EOSINOPHILS % (AUTO) 3.6 % (0-5); MONOCYTES % (AUTO) 13.5 % (4-12); Mean Corpuscular Hemoglobin 32.5 pg (27.0-35.0); Mean Corpuscular Volume 97.8 fL (81-100); NEUTROPHILS % (AUTO) 56.1 % (40-74); Platelet Count 230 bil/L (150-400)
[2016-09-03 08:45] VITALS: BP 138/82; PULSE 65; RESP 16; O2SAT 94
[2016-09-03] MEDS: Fluticasone 0.05% 15 Spray/2 Gm 16 Gm Nasal Spray NASAL SCH (08:50)
[2016-09-03] MEDS: MeTOProlol XL 25 mg ER24 Tablet PO SCH (08:52)
[2016-09-03] MEDS: Pantoprazole 20 mg ER24 Tablet PO SCH (08:53)
[2016-09-03] MEDS ORDERED: cefTRIAXone Inj 1,000 MG in Dextrose 5% Minibag Plus 50 ML IV SCH (10:05)
[2016-09-03 10:12] VITALS: PULSE 62
[2016-09-03] MEDS ORDERED: Amoxicillin-Clav 875-125 mg Tablet PO SCH (11:05)
--- NOTE | 2016-09-03 11:05 | PCM.PNCARD ---
Subjective Date of service Sep 03, 2016 Chief Complaint STEMI s/p stent placement to LAD History of Present Illness Ms. Christine is a very pleasant 76 year old female with a past medical history of reported hypertension, syncope and edema. She presented to the ED via EMS for CP and was diagnosed with with an anterior STEMI due to single vessel CAD. Treated with drug eluting stent to the LAD and continued medication management. Subjective: Subjective: Overnight Patient states she was able to sleep a lot throughout the night, able to ambulate independently. Patient states no recurrence of chest pain though will sometimes feel full like indigestion which is relieved by belching. She does endorse a sinus headache overnight that is resolved with Cecilia. Denies any other complaints. Telemetry showed some pared and multiform PVCs, brief atrial tachycardic episodes and occasional PACs. PROBLEM LIST: # CAD s/p anterior ME 08/31/16 with emergent GUADALUPE X2 to LAD # HFrEF from ischemic cardiomyopathy: EF 40-45% on Echo 09/01/2016 # HLD # Frailty REVIEW OF SYSTEMS Constitutional: Denies Fever, Sweats, Weakness. Endorses chills Eyes: Denies Blurred Vision,Vision Changes Neck: Denies Mass, Pain, Swelling Cardiovascular: Denies Chest Pain, Edema, Rapid Heart Rate, SOB on Exertion, SOB while laying flat Respiratory: Denies Cough, Shortness of Breath, Wheezing Gastrointestinal: Denies Abdominal Pain, Nausea, Vomiting. Endorses heartburn. Genitourinary: Denies burning or pain with urination Musculoskeletal: Denies Ankle Pain, Back Pain, Knee Pain, Neck Pain, Shoulder Pain. Endorses right hip pain secondary to chronic bursitis. Neurological: Denies Change in LOC, Change in Speech, Confusion, Difficulty Walking, Dizziness, Double Vision, Localized Weakness, Numbness, Seizures, Tremors, Vertigo Hematologic: Denies Abnormal bleeding Exam Vital Signs Vital Sign - Last Date Time Temp Pulse Resp B/P Pulse Ox O2 Delivery O2 Flow Rate FiO2 09/03/16 10:12 62 09/03/16 08:45 36.4 16 138/82 94 Room Air 09/03/16 04:31 1.00 Intake and Output 09/02/16 09/02/16 09/03/16 Cumulative From/Thru 15:00 23:00 07:00 08/31/16 12:23 - 09/03/16 05:36 Intake Total 1013 ml Output Total 700 ml Balance 313 ml Intake IV Total 1013 ml Output Urine Total 700 ml # Bowel Movements 0 Additional Information: Patient awake and alert and mentating appropriately sitting up in bed eating breakfast in no apparent distress General: Patient sitting up in bed eating breakfast at time of interview in no acute distress, well-developed, well-nourished, appropriately interactive HEENT: Normocephalic, atraumatic. External ears without defect. Pupils equal, round, and reactive to light and accommodation. Neck: Supple with full range of motion. No jugular venous distension. No bruits. Cardiovascular: Regular rate and rhythm with no murmurs, rubs, or gallops appreciated Pulmonary: Clear to auscultation bilaterally with no crackles, wheezes, or rhonchi. Normal respiratory effort with no use of accessory muscles. Abdomen: Soft, nontender, nondistended. Extremities: No cyanosis, edema, right inguinal area shows ecchymosis, swelling and tender to palpation (improved from yesterday) Neurological: Cranial nerves grossly intact. No known gait impairment. Psychiatric: Normal mood and affect. Alert and oriented to person, place, and time. Lab and Diagnostics Result Diagram: 09/03/16 [id number] X-Rays, CTs and MRIs Echo 09/01/2016: Normal sinus rhythm. Normal LV size and wall thickness. There is basal anterior , mid-anterior and distal anterior akinesis. there is distal septal akinesis; there is distal lateral and mid-anterolateral and basal anterolateral hypokinesis. Otherwise, normal wall motion. EF is 40-45%. Stage II diastolic dysfunction. Mitral valve leaflets are normal; mild regurgitation. Aortic valve leaflets are normal; no regurgitation. There is moderate central TR; estimated PA systolic pressure is 63 mm Hg assuming RA pressure of 10 mm Hg. Compared to prior study performed 11/25/2014, focal wall motion abnormalities are new. PA systolic pressure samuel from 37 mm Hg to 63 mm Hg (likely due to elevated LV filling pressure). Diastolic dysfunction progressed from stage I to stage II. Additional Diagnostics: US DUPLEX DOPPLER UNILATERAL LEG ARTERIES, RIGHT IMPRESSION: No right groin hematoma or pseudoaneurysm. Dictated by: Stuart Bojorquez RRA Interpreted: Naeem Farooq MD Assessment & Plan Assessment Assessment/PLAN: 76 female s/p STEMI with stent placement, hospital day 3. Pt ambulating independently. Physical therapy states that Pt able to walk 140 feet. No recurrence of CP, though dose endorse right inguinal pain. HR said to have elevated to 89 during PT eval. Pt recovering well. #. Anterior STEMI, present on admission. EF 40-45%. No symptoms currently. Patient ambulating without angina or angina equivalent symptoms. - s/p PCI with stent placement. Will add a troponin to labs done today morning to ensure it is dropping. - Continue ASA 81mg daily - Continue Plavix 75mg daily - Continue atorvastatin 40mg qhs - Referral to cardiac rehab as outpatient # CHF, from ischemic cardiomyopathy with EF 40-45%. Euvolemic on exam. Likely NYHA class II or III. Plan: - Continue metoprolol XL 25mg bid - Continue lisinopril 5mg qhs - Heart healthy diet. Spent significant time educating the patient about it. #. Hyperlipidemia, present on admission. Statin as above #. Anemia, not present on admission. Stable over the past two days. Suspect this is due to blood loss from cath insertion and acute illness. No signs of retroperitoneal bleeding and right groin US was unremarkable.. No need for further f/u. Dispo: okay to discharge from cardiology standpoint. Patient needs f/u with cardiology in 3-4 weeks. Problems: Pain Evaluation: Adequate Pain Control VTE Prophylaxis: SCDs VTE Mechanical Devices: Intermittant Pneumatic CD Resuscitation Status: CPR: Attempt Resuscitation Time spent I saw, examined, and evaluated the patient with Dr. Chris Daniels on 09/03/2016 and agree with the note as above along with my edits. CHRIS DANIELS DO Sep 03, 2016 10:24 Maury Gomez MD Sep 03, 2016 11:33
[2016-09-03 11:22] VITALS: BP 123/71; PULSE 72; RESP 16; O2SAT 95
--- NOTE | 2016-09-03 12:07 | PCM.DIMED ---
Discharge Instructions Date of Service Sep 03, 2016 Dates of Hospitalization Aug 31, 2016 at 13:04 Discharge Diagnosis Discharge Diagnosis 1. STEMI. 2. UTI, klebsiella 3. Possible Sinusitis 4. Hypertension. Follow clinically 5. depression 6. PUD Diet Heart Healthy Activity Limited until seen by PCP Patient Instructions PCP in one week Follow-up Provider: Maury Gomez MD Follow-up with PCP in: 3 weeks Phillip Fish MD Sep 03, 2016 12:07
[2016-09-03] MEDS ORDERED: ASPI81TA3 PO (12:10)
[2016-09-03] MEDS ORDERED: AGM875T PO (12:10)
[2016-09-03] MEDS ORDERED: METO25TA99 PO (12:10)
[2016-09-03] MEDS ORDERED: ATOR40TA69 PO (12:10)
[2016-09-03] MEDS ORDERED: CLOP75TA28 PO (12:10)
[2016-09-03 13:27] LABS: Creatine Kinase 100 U/L (21-215)
--- NOTE | 2016-09-03 13:53 | PCM.DC.MED ---
Discharge Summary Date of Service Sep 03, 2016 Dates of Hospitalization Date of Hospital Admission Aug 31, 2016 at 13:04 Date of Discharge: Sep 03, 2016 Providers: Admitting Physician: Haris Griffith MD Primary Care Physician: Other,Physician Attending Physician: Haris Griffith MD Diagnosis at Time of Discharge Diagnosis at Time of Discharge 1. STEMI. 2. UTI, klebsiella 3. Possible Sinusitis 4. Hypertension. Follow clinically 5. depression 6. PUD Consultations Cardiology and interventional cardiology. Nacho Castellanos and Jason Procedures XRay, CTs & MRIs Chest x-ray at time of admit is normal Right leg duplex ultrasound negative for hematoma or pseudoaneurysm. Cardiac Echo Impression Interpretation Summary Normal sinus rhythm. Normal LV size and wall thickness. There is basal anterior, mid-anterior and distal anterior akinesis. there is distal septal akinesis; there is distal lateral and mid-anterolateral and basal anterolateral hypokinesis. TOtherwise, normal wall motion. EF is 40-45%. Stage II diastolic dysfunction. Mitral valve leaflets are normal; mild regurgitation. Aortic valve leaflets are normal; no regurgitation. There is moderate central TR; estimated PA systolic pressure is 63 mm Hg assuming RA pressure of 10 mm Hg. Compared to prior study performed 11/25/2014, focal wall motion abnormalities are new. PA systolic pressure samuel from 37 mm Hg to 63 mm Hg (likely due to elevated LV filling pressure). Diastolic dysfunction progressed from stage I to stage II. Invasive Procedures .08/31/2016: 1. Coronary angiogram, emergent: Left heart catheterization (LCH); LVED and pullback. 2. Percutaneous coronary intervention (PCI): a. GUADALUPE of mid LAD: Resolute 2.25 x 30 mm and overlapping Resolute 2.25 x 12 mm. b. GUADALUPE of proximal LAD: Xience 2.75 x 18 mm. Brief History Ms. Christine is a very pleasant 76 year old female with a past medical history of reported hypertension, syncope and edema. She presented to the ED via EMS for CP and was diagnosed with with an anterior STEMI due to single vessel CAD. Treated with drug eluting stent to the LAD and continued medication management. Hospital Course 1. STEMI. POA. Chest pain, LAD occlusion/3 stent placement, treated as ST elevation MD -Continue current medical management. We will likely increase her metoprolol from 12.5 twice a day to 25 twice a day. Will discuss with cardiology. Continue dual antiplatelets, atorvastatin at 40 and lisinopril at 5. 2. Probable acute systolic heart failure secondary to MD. POA. The patient currently compensated. Will again titrate her cardiac medications as noted above. Her LV EF is about 45%. 3. Possible Sinusitis --trial amoxicillin, claritin, ocean spray Chronic issues known prior to admission, present on admission 4. Hypertension. Follow clinically 5. depression 6. PUD, but 2004 negative EGD -- Protonix, serzone Probable discharge on September 03 Hospital course. She was admitted with chest pain and called as a STEMI code. She is taking to the [facility] on August 31 found to have LAD occlusion and had PCI with stenting of the LAD. She was treated medically as ST elevation MD. She was placed into antiplatelets atorvastatin and metoprolol was uptitrated from 12.5-25 twice a day. An echo indicated a mild acute congestive heart failure with LV dysfunction and EF of 45%. She however remained compensated had no dyspnea or edema. There is also a concern for sinusitis and she was started on oral antibiotics. A urine culture fact grew out Klebsiella consistent with urinary tract infection which happened to be resistant to oxacillin but sensitive to Augmentin. On the day of discharge she did well with physical therapy and I met with her and her family to talk about the importance of cardiac rehabilitation as well as following physical therapy recommendations to use a front-wheeled walker for next couple weeks at home. We also will switch her to Augmentin to cover her Klebsiella urinary tract infection as well as possible sinusitis. Exam Vital Signs (Last) Date Time Temp Pulse Resp B/P Pulse Ox O2 Delivery O2 Flow Rate FiO2 09/03/16 11:22 36.4 72 16 123/71 95 Room Air 09/03/16 04:31 1.00 Exam Alert oriented no acute distress. Fluent speech. \ Lungs are clear with normal left and right. Heart is regular without murmur gallop or rub. Abdomen soft nontender perforations are free of edema good pedal pulses Test 08/31/16 12:48 08/31/16 12:55 09/01/16 02:50 09/01/16 18:44 Urine Color Yellow (YELLOW) Urine Appearance Hazy (CLEAR,HAZY) Urine pH 5.5 (5.0-8.0) Urine Specific [place] 1.029 (1.003-1.035) Urine Protein Tracemg/dL (NEG,TRACE) Urine Glucose (UA) Negativemg/dL (NEGATIVE) Urine Ketones Tracemg/dL (NEGATIVE) Urine Occult Blood Negative (NEGATIVE) Urine Nitrite Negative (NEGATIVE) Urine Bilirubin Negative (NEGATIVE) Urine Urobilinogen Normalmg/dL (NORMAL) Urine Leukocyte Esterase Negative (NEGATIVE) Urine RBC 0-2/hpf (0-2) Urine WBC 0-5/hpf (0-5) Urine Epithelial Cells Few/hpf (NONE-MOD) Urine Crystals Oxalic acid crystals (NONE Urine Bacteria Many/hpf (NONE-FEW) Urine Hyaline Casts None/lpf (NONE) Urine Granular Casts None seen (NONE SEEN) Urine Waxy Casts None seen (NONE SEEN) Urine Red Blood Cell Casts None seen (NONE SEEN) Urine White Blood Cell Casts None seen (NONE SEEN) Urine Mucus None seen (None Seen) Urine Trichomonas None seen (NONE SEEN) Urine Yeast None (NONE SEEN) Urine Culture Reflexed Indicated Prothrombin Time 10.7sec (8.1-12.5) Prothromb Time International Ratio 1.00ratio Activated Partial Thromboplast Time 66.2sec (22.8-33.0) Hold [place] Top Tube Received (Received) Hemoglobin A1c 5.3% (4.8-5.6) Magnesium Level 1.7mg/dL (1.6-2.6) Triglycerides Level 188mg/dL (0-149) Cholesterol Level 251mg/dL (100-199) LDL Cholesterol, Calculated 155.400mg/dL (0-99) VLDL Cholesterol 37.600mg/dL HDL Cholesterol 58mg/dL (>39) Cholesterol/HDL Ratio 4.33 (0.0-4.4) Free Thyroxine Index 1.6 (1.2-4.9) Thyroxine (T4) 5.3ug/dL (4.5-12.0) Triiodothyronine (T3) Uptake 30% (24-39) Hold Urine Received (Received) Test 09/03/16 05:20 White Blood Count 7.0th/mm3 (3.8-10.1) Red Blood Count 3.23mil/mm3 (3.90-5.20) Hemoglobin 10.5g/dL (12.0-15.6) Hematocrit 31.6% (35.0-46.0) Mean Corpuscular Volume 97.8fL (81-100) Mean Corpuscular Hemoglobin 32.5pg (27.0-35.0) Mean Corpuscular Hemoglobin Concent 33.2% (32.0-37.0) Red Cell Distribution Width 13.6% (12.3-15.4) Platelet Count 230bil/L (150-400) Neutrophils (%) (Auto) 56.1% (40-74) Lymphocytes (%) (Auto) 26.1% (14-46) Monocytes (%) (Auto) 13.5% (4-12) Eosinophils (%) (Auto) 3.6% (0-5) Basophils (%) (Auto) 0.6% (0-3) Sodium Level 142mEq/L (134-144) Potassium Level 4.0mEq/L (3.5-5.2) Chloride Level 103mEq/L (97-108) Carbon Dioxide Level 27mmol/L (18-29) Blood Urea Nitrogen 13mg/dL (8-27) Creatinine 0.49mg/dL (0.57-1.00) Estimat Glomerular Filtration Rate 176mL/min (>59) Glucose Level 99mg/dL (60-99) Calcium Level 8.8mg/dL (8.5-10.1) Total Bilirubin 0.3mg/dL (0.0-1.2) Aspartate Amino Transf (AST/SGOT) 26U/L (0-50) Alanine Aminotransferase (ALT/SGPT) 10U/L (0-32) Alkaline Phosphatase 87U/L (25-165) Total Creatine Kinase 100U/L (21-215) Creatine Kinase MB 4.8ng/mL (0.0-5.3) Creatine Kinase MB % % (0.0-5.0) Troponin T 0.894ug/L (0.0-0.011) Total Protein 5.9g/dL (6.4-8.4) Albumin 3.5g/dL (3.4-5.0) Discharge Medications Discharge Medications Amoxicillin/Clav K 875-125 mg (Amoxicillin/Clav K 875-125 mg) 875 Mg Tab 1 TAB PO BID Prescribed by: PHILLIP GUPTA MD Aspirin Chew (Aspirin Chew) 81 Mg Chew 81 MG PO DAILY Prescribed by: PHILLIP GUPTA MD Atorvastatin Calcium (Atorvastatin Calcium) 40 Mg Tablet 40 MG PO HS Prescribed by: PHILLIP GUPTA MD Calcium Carbonate/Vitamin D3 (Calcium + Vitamin D Tablet) 1 Each Tablet 1 EACH PO DAILY (Reported) Clopidogrel (Clopidogrel) 75 Mg Tablet 75 MG PO DAILY Prescribed by: PHILLIP GUPTA MD Hydrochlorothiazide (Hydrochlorothiazide) 12.5 Mg Tablet 12.5 MG PO DAILY ( Reported) Levothyroxine (Levothyroxine) 75 Mcg Tablet 1 TAB PO DAILY (Reported) Lisinopril (Lisinopril) 20 Mg Tablet 1 TAB PO BID (Reported) Metoprolol Succinate ER (Metoprolol Succinate ER) 25 Mg Tab.er.24h 25 MG PO BID Prescribed by: PHILLIP GUPTA MD Multivitamin (Multivitamins) 1 Each Capsule 1 EACH PO DAILY (Reported) Nefazodone (Nefazodone) 200 Mg Tablet 1 TAB PO BID (Reported) Omeprazole (Omeprazole) 20 Mg Capsule.dr 1 TAB PO BID (Reported) As needed Fexofenadine (Cecilia Allergy) 180 Mg Tablet 180 MG PO A PRN PRN seasonal allergies (Reported) Miscellaneous Medications Potassium Chloride (Potassium Chloride) 20 Meq Tab.er.prt 1 TAB PO (Reported) Followup Plan Disposition: Home, with family Discharge Diet: Heart Healthy Discharge Activity: Limited until seen by PCP Patient Instructions PCP in one week Follow-up Provider: Maury Gomez MD Follow-up with PCP in: 3 weeks Time spent 45 minutes Phillip Gupta MD Sep 03, 2016 13:53
--- NOTE | 2016-09-03 15:27 | NUR ---
Social Work: Discharge hog worker met with patient and patient's family at bedside to discuss discharge plan and SW role explained. Cardio Rehab was recommended for the patient. Patient stated that she would complete cardio rehab at [facility]. LOAN gove patient the telephone number to set up an appointment [phone] Extension [phone]. Patient will discharge home with outpatient cardio rehab. Jenny Ann, [place], ACM
--- NOTE | 2016-09-03 17:06 | NUR ---
Trop/Discharge Pt's trop came back at 0.894 this am, which was up from prior trop value. Pt's discharge order had already been placed, MD notified who verbalized that he discussed it with cardiology, [facility] lab ordered as an add-on and RN instructed to continue with discharge. Pt discharged to home with family at ~1500 today with home PT f/u. Pt given discharge educational materials on all new prescriptions with exception of FWW. Pt also given discharge booklets on angioplasty/stents and recovering from ME. Pt's IV access D/C'd and intact. Pt instructed to f/u with cardiology, appointment made with Dr. Velazquez on 10/02/16 at 1510 at the [place] office, phone number supplied. Pt and significant other verbalized that they would acquire needed medications this evening after discharge. Pt and family verbalized understanding of all discharge instructions. All belongings accompanied Pt at time of discharge.
== END 2016-09-03 15:30 | disposition home or self-care (01) | DRG 246 ==
LOC: SED 12:18 → EDBD 12:18 → PCC 13:04 → CCU 15:55 → PCC 09-01 07:41
PROVIDERS: ADMIT Internal Medicine Cardiovascular Disease; ATTEND Urology
PROC: 027036Z Dilation of Coronary Artery, One Artery with Three Drug-eluting Intraluminal Devices, Percutaneous Approach (ICD-10-PCS; principal; 2016-08-31)
PROC: 4A023N7 Measurement of Cardiac Sampling and Pressure, Left Heart, Percutaneous Approach (ICD-10-PCS; 2016-08-31)
PROC: B2111ZZ Fluoroscopy of Multiple Coronary Arteries using Low Osmolar Contrast (ICD-10-PCS; 2016-08-31)
DX: I21.02 ST elevation (STEMI) myocardial infarction involving left anterior descending coronary artery (principal); I50.21 Acute systolic (congestive) heart failure; N39.0 Urinary tract infection, site not specified; I10 Essential (primary) hypertension; Z87.891 Personal history of nicotine dependence; F32.9 Major depressive disorder, single episode, unspecified; K27.7 Chronic peptic ulcer, site unspecified, without hemorrhage or perforation; I25.10 Atherosclerotic heart disease of native coronary artery without angina pectoris; E78.5 Hyperlipidemia, unspecified; D64.9 Anemia, unspecified; B96.1 Klebsiella pneumoniae [K. pneumoniae] as the cause of diseases classified elsewhere; J01.90 Acute sinusitis, unspecified